=== PATIENT | female | born 1970 | race Caucasian/White ===

== ENCOUNTER 2017-08-03 13:07 | Emergency (ER) | payer MEDICARE, MEDICAID ==
[2017-08-03 13:57] LABS: Eosinophils 1 % (0-10); Hemoglobin 13.2 g/dL (12.0-16.0); Lymphocytes 33 % (21-51); MDiff Complete? YES; Mean Corpuscular Volume 81.6 fl (81.0-99.0); Mean Platelet Volume 8.3 fL (7.4-10.4); Monocytes 6 % (0-10); Neutrophil 58 % (42-75); Platelet Count 212 thou/uL (130-400); RBC Distribution Width 13.5 % (11.5-14.5); Reactive Lymphocytes 2 % (0-10); Red Blood Cell (RBC) Count 4.89 mill/uL (4.20-5.40); White Blood Cell (WBC) Count 5.9 thou/uL (4.8-10.8)
[2017-08-03 14:02] LABS: Bilirubin Negative (Negative); Blood, Urine Negative (Negative); Clarity Clear (Clear); Glucose, Urine (Dipstick) Negative (Negative); Leukocyte Negative (Negative); Nitrite Negative (Negative); Protein, Urine (Dipstick) Negative (Neg-Trace); Urobilinogen 0.2 mg/dL (0.2-1.0); pH, Urine 6.5 (5.0-9.0)
[2017-08-03] MEDS ORDERED: Fentanyl 100 MCG/2 ML VIAL ONE (14:04)
[2017-08-03] MEDS ORDERED: Ondansetron HCl/PF 4 MG/2 ML Vial ONE (14:04)
[2017-08-03 14:07] LABS: ALT (SGPT) 18 U/L (8-55); AST (SGOT) 17 U/L (5-34); Alkaline Phosphatase 92 U/L (40-150); Anion Gap 13 mmol/L (10-20); BUN (Urea Nitrogen) 13 mg/dL (7.0-18.7); Bilirubin, Total 0.6 mg/dL (0.2-1.2); Calc. Creatinine Clearance 0 mL/min (70-130); Calcium 9.4 mg/dL (7.8-10.44); Carbon Dioxide 28 mmol/L (22-29); Chloride 104 mmol/L (98-107); Estimated GFR-MDRD 83; Globulin 2.5 g/dL (2.4-3.5); Glucose 92 mg/dL (70-105); Lipase 34 U/L (8-78); Potassium 4.2 mmol/L (3.5-5.1); Protein, Total 6.5 g/dL (6.0-8.3); Sodium 141 mmol/L (136-145)
[2017-08-03 14:09] LABS: CKMB 1.1 ng/mL (0-6.6); Troponin I Less than 0.010 ng/mL (< 0.028)
[2017-08-03] MEDS ORDERED: Famotidine In NaCl 20 mg/50 ml Premix Bag ONE (14:17)
--- NOTE | 2017-08-03 15:28 | CT ---
CT ABDOMEN AND PELVIS WITH CONTRAST: DATE: 08/03/17. FINDINGS: Spiral CT of the abdomen and pelvis was done. Oral contrast was withheld by request. IV contrast wa s started, but it was stopped immediately as the patient complained of pain at the injection site. A ppropriate measures were taken afterwards. Thus, the exam is most likely a noncontrast study. Axial slices were acquired, then coronal reconstructions were done. The lung bases are clear. The liver, spleen, pancreas, adrenal glands, and abdominal aorta showed no acute findings. A nonobstructing calculus or were suggested in the right kidney. There is no sign of hydronephrosis or ureteral calculi. There appears to have been a prior cholecystectomy as well as gastric reduction surgery. There is so me questioning of some mild thickening of the wall of the right colon. There is no stranding around it, but I cannot exclude some mild colitis. Nonspecific, nondilated loops of small bowel are seen wi th fluid within them. There is no sign of free air, free fluid, or inflammatory changes around any b owel loops. 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 No gross mas s, fluid collection, or inflammatory change was seen. The patient has had prior laminectomies in the lower lumbar spine. IMPRESSION: 1. Equivocal thickening of the wall of the right colon. Mild colitis is not excluded. 2. Nonspecific fluid-filled loops of small bowel, no dilation. 3. Nonobstructing right renal calculus. POS: HOME
[2017-08-03] MEDS ORDERED: Sulfameth/Trimethoprim DS 800-160mg TAB ONE (15:45)
[2017-08-03] MEDS ORDERED: Ondansetron ODT 4 MG TAB ONE (15:45)
== END 2017-08-03 16:12 | disposition home or self-care (01) ==
LOC: BURERS 13:07
DX: K52.9 Noninfective gastroenteritis and colitis, unspecified (principal); F32.9 Major depressive disorder, single episode, unspecified; E66.9 Obesity, unspecified; Z79.899 Other long term (current) drug therapy
CPT/HCPCS: 36415; 74177; 80053; 81003; 82553; 83690; 84484; 85025; 93005; 94760; 96361; 96365; 96375; J2405; J3010; Q0162